=== PATIENT | male | born 1955 | race Caucasian/White ===

== ENCOUNTER 2018-11-23 13:28 | Emergency (ER) | payer MEDICARE, MEDICAID ==
[~2018-11-23] VITALS: Ht 175.3 cm; Wt 77.1 kg
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
[2018-11-23] MEDS ORDERED: NA P133E RC (14:04)
[2018-11-23] MEDS ORDERED: ACET-868 PO (14:04)
[2018-11-23] MEDS ORDERED: DIVA500T54 PO (14:04)
[2018-11-23] MEDS ORDERED: BISA10SU11 RC (14:04)
[2018-11-23] MEDS ORDERED: MELA3TAB PO (14:04)
[2018-11-23] MEDS ORDERED: FLUT9.9S BNOSTRILS (14:04)
[2018-11-23] MEDS ORDERED: FERR325T23 PO (14:04)
[2018-11-23] MEDS ORDERED: QUET300T2 PO (14:04)
[2018-11-23] MEDS ORDERED: MULT-24 PO (14:04)
[2018-11-23] MEDS ORDERED: MAGN400O6 PO (14:04)
--- NOTE | 2018-11-23 15:00 | NUR ---
SPLINT APPLIED ON RIGHT HAND
--- NOTE | 2018-11-23 15:10 | NUR ---
TIFFANIE BUSTAMANTE ETA 1615 TRIP#[id number]
--- NOTE | 2018-11-23 16:06 | NUR ---
WAITING FOR TRANSPORTATION. PATIENT IN STABLE CODNITION.
--- NOTE | 2018-11-23 16:22 | NUR ---
REPORT GIVEN TO OLIVE GROWER, PATIENT DISCHARGED TO [facility], PATIENT VERBALIZED UNDERSTANDING. PATIENT LEFT IN STABLE CONDITION. SPLINT ON RIGHT HAND CLEAN AND DRY.
[2018-11-23 16:24] VITALS: BP 131/80
== END 2018-11-23 16:24 ==
LOC: ER 13:32
DX: S62.336A Displaced fracture of neck of fifth metacarpal bone, right hand, initial encounter for closed fracture (principal); J44.9 Chronic obstructive pulmonary disease, unspecified; F32.9 Major depressive disorder, single episode, unspecified; F20.9 Schizophrenia, unspecified; D64.9 Anemia, unspecified; G89.4 Chronic pain syndrome; Z79.899 Other long term (current) drug therapy; Y08.89XA Assault by other specified means, initial encounter; Y93.89 Activity, other specified; Y92.89 Other specified places as the place of occurrence of the external cause; Y99.8 Other external cause status
CPT/HCPCS: 73130-TC